=== PATIENT | male | born 1980 | race Two or more races ===

== ENCOUNTER 2016-06-22 15:47 | Emergency (ER) | payer MEDICAID, OTHER ==
[~2016-06-22] VITALS: Ht 175.3 cm; Wt 58.4 kg
[2016-06-22 15:52] VITALS: BP 136/96
[2016-06-22] MEDS ORDERED: IBUPROFEN 200 MG TABLET ONE (16:13)
[2016-06-22] MEDS ORDERED: IBUPROFEN 200 MG TABLET PO ONE (16:30)
== END 2016-06-22 17:59 | disposition home or self-care (01) ==
LOC: ED 16:05
DX: S62.327A Displaced fracture of shaft of fifth metacarpal bone, left hand, initial encounter for closed fracture (principal); X58.XXXA Exposure to other specified factors, initial encounter; Y93.89 Activity, other specified; Y92.89 Other specified places as the place of occurrence of the external cause; Y99.8 Other external cause status
CPT/HCPCS: 29125